=== PATIENT | female | born 1955 | race Caucasian/White ===

== ENCOUNTER 2016-07-14 16:14 | Inpatient (IN) | payer MEDICAID, OTHER ==
--- NOTE | 2016-07-14 17:29 | CPEKG ---
Heart Rate: 54 RR Interval: 1111 P-R Interval: 164 QRSD Interval: 94 QT Interval: 460 QTC Interval: 436 P Oldwick: 21 QRS Oldwick: -13 T Wave Oldwick: 42 EKG Severity - NORMAL ECG - EKG Impression: SINUS RHYTHM Electronically Signed By: Aaron Aranda 14-Jul-2016 23:14:56
[2016-07-14] MEDS ORDERED: ONDANSETRON 4 MG/2 ML VIAL ONE (17:44)
[2016-07-14] MEDS ORDERED: HYDROmorphONE/DILAUDID 1 MG/ML SYR ONE ×2 (17:44→20:05)
[2016-07-14] MEDS ORDERED: NS 1,000 ML IV ONE ×2 (17:45→17:53)
[2016-07-14] MEDS ORDERED: HYDROmorphONE/DILAUDID 1 MG/ML SYR IVP ONE ×3 (17:45→18:03)
[2016-07-14] MEDS ORDERED: ONDANSETRON 4 MG/2 ML VIAL IVP ONE ×3 (17:45→17:52)
[2016-07-14 17:55] LABS: % IMMATURE GRANULYOCYTES 0.2 % (0.0-1.1); ABSOLUTE IMMATURE GRANULOCYTES 0.02 10^3/uL (0.00-0.10); ADD DIFF? NO; ADD MORPH? NO; ADD SCAN? NO; ATYPICAL LYMPHOCYTE FLAG 0 (0-99); FRAGMENT RBC FLAG 0 (0-99); HEMOGLOBIN 16.3 g/dL (12.6-16.3); LEFT SHIFT FLG 10 (0-99); LIPEMIA HEMOLYSIS FLAG 90 (0-99); MEAN CELL HEMOGLOBIN 34.5 pg (27.9-34.1); MEAN CELL VOLUME 93.2 fL (81.5-99.8); PLATELET CLUMPS FLAG 0 (0-99); PLATELET COUNT 147 10^3/uL (150-400); RED BLOOD CELL COUNT 4.72 10^6/uL (4.18-5.33); RED CELL DISTRIBUTION WIDTH 12.7 % (11.5-15.2)
[2016-07-14 18:00] LABS: ALANINE AMINOTRANSFERASE 95 IU/L (9-52); ALBUMIN 4.9 g/dL (3.5-5.0); ALKALINE PHOSPHATASE 107 IU/L (38-126); ANION GAP 18 mEq/L (8-16); ASPARTATE AMINOTRANSFERASE 25 IU/L (14-46); BILIRUBIN,TOTAL 2.1 mg/dL (0.1-1.4); BILIRUBIN-CONJUGATED 0.8 mg/dL (0.0-0.5); BILIRUBIN-UNCONJUGATED 1.3 mg/dL (0.0-1.1); CARBON DIOXIDE 19 mEq/l (22-31); CHLORIDE 101 mEq/L (97-110); CREATININE 0.5 mg/dL (0.6-1.0); GLOMERULAR FILTRATION RATE > 60; GLUCOSE 155 mg/dL (70-100); POTASSIUM 3.5 mEq/L (3.5-5.2); SODIUM 138 mEq/L (134-144); TOTAL PROTEIN 8.4 g/dL (6.3-8.2)
[2016-07-14 18:05] LABS: INR 1.16 (0.83-1.16); PROTIME(PATIENT) 14.8 SEC (12.0-15.0)
[2016-07-14 18:06] LABS: APTT 28.3 SEC (23.0-38.0)
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
[2016-07-14 18:12] LABS: CREATINE KINASE-MB FRACTION 1.65 ng/mL (0-3.19); TROPONIN I < 0.012 ng/mL (0-0.034)
[2016-07-14] MEDS ORDERED: ACETAMINOPHEN 325 MG TAB PO PRN (21:39)
[2016-07-14] MEDS ORDERED: ONDANSETRON 4 MG/2 ML VIAL IVP PRN (21:39)
[2016-07-14] MEDS ORDERED: ONDANSETRON DISINTEGRATING 4 MG TAB PO PRN (21:39)
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
[2016-07-14] MEDS: HYDROmorphONE/DILAUDID 1 MG/ML SYR IVP PRN (22:54)
[2016-07-14] MEDS: D5W 1/2 NS W/ 20 KCl/L 1,000 ML IV SCH (22:54)
--- NOTE | 2016-07-15 00:41 | GCON ---
[f rep st] CONSULTATION DATE OF CONSULTATION: 07/14/2016 REFERRING PHYSICIAN: Aaron Aranda DO CHIEF COMPLAINT: Choledocholithiasis. HISTORY OF PRESENT ILLNESS: The patient is a 61-year-old woman with known cholelithiasis. She deve loped right upper quadrant pain radiating to her back during the past 24 hours. It was associated w ith nausea and vomiting. She has never had this discomfort before. Due to the pain, she presented to the emergency room. She had laboratory work done, which showed a total bilirubin of 2.1, with co njugated of 0.8. An ultrasound showed a common bile duct stone, and dilatation of the extrahepatic bile ducts, without any evidence of cholecystitis. PAST MEDICAL HISTORY: 1. Hypertension. 2. Chronic back pain. PAST SURGICAL HISTORY: D and C's. SOCIAL HISTORY: She drinks several times a week, but never in excess. She lives by herself. She d enies tobacco use. MEDICATIONS: Include losartan. ALLERGIES: Include Augmentin. FAMILY HISTORY: No family history of choledocholithiasis. REVIEW OF SYSTEMS: Ten-point review of systems negative, except per HPI. PHYSICAL EXAM: VITAL SIGNS: 36.7, 68, 133/99, 20, 97%. GENERAL: Pleasant, lying on her side, ove rweight, appears uncomfortable, but not toxic. HEENT: Normocephalic. No gross hearing deficits. Mucous membranes moist. Pupils equal and round. No scleral icterus. LUNGS: Clear to auscultation bilaterally. No increased work of breathing. CARDIAC: Regular rate. No peripheral edema. ABDOM EN: Bowel sounds are present. She is tender in the right upper quadrant to light touch. No obviou s hepatosplenomegaly. She is soft. MUSCULOSKELETAL: Normal nails. NEUROLOGIC: Grossly intact. SKIN: Warm and dry. Results reviewed per HPI. IMPRESSION AND PLAN: The patient is a 61-year-old with choledocholithiasis. I recommended GI be co nsulted, and with hopeful stone extraction. I recommended that her gallbladder be taken out within a week of the ERCP. I stated that most people do it within the same hospitalization. 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 We discussed the risk of another stone passing. She is amenable to being admitted with ERCP, and I will follow up tomorrow, and we will discuss timing of laparoscopic cholecystectom y later. /[id number]/MODL
[2016-07-15] MEDS: HYDROmorphONE/DILAUDID 1 MG/ML SYR IVP PRN ×6 (03:07→23:01)
[2016-07-15 05:42] LABS: % IMMATURE GRANULYOCYTES 0.2 % (0.0-1.1); ABSOLUTE IMMATURE GRANULOCYTES 0.02 10^3/uL (0.00-0.10); ADD DIFF? NO; ADD MORPH? NO; ADD SCAN? NO; ATYPICAL LYMPHOCYTE FLAG 0 (0-99); FRAGMENT RBC FLAG 0 (0-99); HEMATOCRIT 40.7 % (38.0-47.0); HEMOGLOBIN 14.8 g/dL (12.6-16.3); LEFT SHIFT FLG 0 (0-99); LIPEMIA HEMOLYSIS FLAG 90 (0-99); MEAN CELL HEMOGLOBIN 34.3 pg (27.9-34.1); MEAN CELL HEMOGLOBIN CONCENTR. 36.4 g/dL (32.4-36.7); MEAN CELL VOLUME 94.4 fL (81.5-99.8); MEAN PLATELET VOLUME 10.5 fL (8.7-11.7); PLATELET CLUMPS FLAG 10 (0-99); PLATELET COUNT 137 10^3/uL (150-400); RED BLOOD CELL COUNT 4.31 10^6/uL (4.18-5.33); RED CELL DISTRIBUTION WIDTH 12.9 % (11.5-15.2)
[2016-07-15 06:04] LABS: ALANINE AMINOTRANSFERASE 77 IU/L (9-52); ALKALINE PHOSPHATASE 80 IU/L (38-126); ANION GAP 9 mEq/L (8-16); ASPARTATE AMINOTRANSFERASE 15 IU/L (14-46); BILIRUBIN,TOTAL 1.7 mg/dL (0.1-1.4); BILIRUBIN-CONJUGATED 0.6 mg/dL (0.0-0.5); BILIRUBIN-UNCONJUGATED 1.1 mg/dL (0.0-1.1); CALCIUM 8.5 mg/dL (8.5-10.4); CARBON DIOXIDE 22 mEq/l (22-31); CHLORIDE 104 mEq/L (97-110); CREATININE 0.5 mg/dL (0.6-1.0); GLOMERULAR FILTRATION RATE > 60; GLUCOSE 173 mg/dL (70-100); POTASSIUM 3.7 mEq/L (3.5-5.2); SODIUM 135 mEq/L (134-144)
--- NOTE | 2016-07-15 06:45 | SOAPPROG ---
YASMEEN Progress Note Assessment/Plan: Assessment:Chart reviewed. I agree with ERCP, will schedule for 1200 today. Plan: 07/15/16 06:44 Objective: Vital Signs Temp Pulse Resp BP Pulse Ox 37 C 75 16 157/79 H 90 L 07/15/16 05:12 07/15/16 05:12 07/15/16 05:12 07/15/16 05:12 07/15/16 05:12 Laboratory Results 07/15/16 05:25 07/15/16 05:25 07/14/16 07/15/16 07/16/16 05:59 05:59 05:59 Intake Total 1000 Balance 1000 PT 14.8 SEC (12.0-15.0) 07/14/16 17:35 INR 1.16 (0.83-1.16) 07/14/16 17:35 ICD10 Worksheet Patient Problems: Problems Problem Status Onset Choledocholithiasis Acute Upper abdominal pain Acute Sternal fracture Acute
[2016-07-15] MEDS: LOSARTAN POTASSIUM 50 MG TAB PO SCH (08:03)
[2016-07-15] MEDS: D5W 1/2 NS W/ 20 KCl/L 1,000 ML IV SCH ×2 (08:09→23:01)
--- NOTE | 2016-07-15 08:51 | SOAPPROG ---
SOAP Progress Note Assessment/Plan: Assessment: 61 year old admitted for choledocolithiasis Dr. 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 No nausea O: lying in bed, appears uncomfortable Plan: 07/15/16 08:47 Objective: Vital Signs Temp Pulse Resp BP Pulse Ox 37.3 C 81 14 148/82 H 94 07/15/16 08:10 07/15/16 08:10 07/15/16 08:10 07/15/16 08:10 07/15/16 08:10 Laboratory Results 07/15/16 05:25 07/15/16 05:25 07/14/16 07/15/16 07/16/16 05:59 05:59 05:59 Intake Total 1000 Balance 1000 PT 14.8 SEC (12.0-15.0) 07/14/16 17:35 INR 1.16 (0.83-1.16) 07/14/16 17:35 Physical Exam - Physical Exam General Appearance: WD/WN, alert, mild distress EENT: PERRL/EOMI, normal ENT inspection, No scleral icterus (R), No scleral icterus (L), No hearing deficit Respiratory: chest non-tender, lungs clear, normal breath sounds Cardiac/Chest: regular rate, rhythm Abdomen: normal bowel sounds, soft, other (?palpable gallbladder in right upper quadrant. Very tender even to light palpation) Skin: normal color, warm/dry Extremities: normal range of motion Neuro/Psych: no motor/sensory deficits, normal mood/affect ICD10 Worksheet Patient Problems: Problems Problem Status Onset Choledocholithiasis Acute Upper abdominal pain Acute Sternal fracture Acute
--- NOTE | 2016-07-15 09:05 | HOSPPROG ---
Hospitalist Progress Note Assessment/Plan: #Choledocholithiasis: ERCP today by. Dr. Turner. Appreciate Dr. Stanford's consult as well #Acute abd pain: due to above. PRN IV Dilaudid #Biliary obstruction: ERCP today #Accelerated HTN: pain contributing. Cont Losartan #Diet: NPO #DVT ppx: SCDs #Disp: warrants inpatient admission with uncontrolled pain requiring ERCP and IV pain control Subjective: crampy abd pain. No emesis today Objective: Vital Signs Temp Pulse Resp BP Pulse Ox 37.3 C 81 14 148/82 H 94 07/15/16 08:10 07/15/16 08:10 07/15/16 08:10 07/15/16 08:10 07/15/16 08:10 Laboratory Results 07/15/16 05:25 07/15/16 05:25 07/14/16 07/15/16 07/16/16 05:59 05:59 05:59 Intake Total 1000 Balance 1000 PT 14.8 SEC (12.0-15.0) 07/14/16 17:35 INR 1.16 (0.83-1.16) 07/14/16 17:35 - Physical Exam Constitutional: no apparent distress (tired), uncomfortable, other Eyes: PERRL Ears, Nose, Mouth, Throat: moist mucous membranes, hearing normal Cardiovascular: regular rate and rhythym, no murmur, rub, or gallop Respiratory: no respiratory distress, no rales or rhonchi Gastrointestinal: other (quiet BS. RUQ/epigastric TTP) Genitourinary: no bladder fullness Skin: warm Musculoskeletal: full muscle strength Neurologic: AAOx3, CN II-XII Intact ICD10 Worksheet Patient Problems: Problems Problem Status Onset Choledocholithiasis Acute Upper abdominal pain Acute Sternal fracture Acute
[2016-07-15] MEDS ORDERED: IOTHALAMATE MEG (CONRAY) 50 ML VIAL IV ONE (11:29)
[2016-07-15] MEDS ORDERED: GLUCAGON,HUMAN RECOMBINANT 1 MG VIAL ONE (11:29)
[2016-07-15] MEDS ORDERED: fentaNYL 100 MCG/2 ML INJ ONE ×2 (12:02)
[2016-07-15] MEDS ORDERED: PROPOFOL 200 MG/20 ML VIAL ONE ×2 (12:02)
[2016-07-15] MEDS ORDERED: ONDANSETRON 4 MG/2 ML VIAL ONE (12:05)
[2016-07-15] MEDS ORDERED: LIDOCAINE 2% 5 ML SDV ONE (12:05)
[2016-07-15] MEDS ORDERED: ROCURONIUM 50 MG/5 ML VIAL ONE (12:05)
[2016-07-15] MEDS ORDERED: SUGAMMADEX SODIUM 200 MG/2 ML VIAL IVP ONE (12:05)
[2016-07-15] MEDS ORDERED: RANITIDINE 50 MG/2 ML VIAL ONE (12:05)
[2016-07-15] MEDS ORDERED: METOCLOPRAMIDE 10 MG/2 ML VIAL ONE (12:05)
[2016-07-15] MEDS ORDERED: INDOMETHACIN 50 MG SUPP PR ONE (12:32)
--- NOTE | 2016-07-15 13:10 | SOAPPROG ---
YASMEEN Progress Note Assessment/Plan: Assessment:Chart reviewed. I agree with ERCP, will schedule for 1200 today. Plan: 07/15/16 06:44 07/15/16 13:09 ERCP with sphincterotomy performed, CBD clear of debris at end of procedure. No PD injections performed. Surgery as per Dr. Stanford. Objective: Vital Signs Temp Pulse Resp BP Pulse Ox 37.3 C 81 14 148/82 H 94 07/15/16 08:10 07/15/16 08:10 07/15/16 08:10 07/15/16 08:10 07/15/16 08:10 Laboratory Results 07/15/16 05:25 07/15/16 05:25 07/14/16 07/15/16 07/16/16 05:59 05:59 05:59 Intake Total 1000 Balance 1000 PT 14.8 SEC (12.0-15.0) 07/14/16 17:35 INR 1.16 (0.83-1.16) 07/14/16 17:35 ICD10 Worksheet Patient Problems: Problems Problem Status Onset Choledocholithiasis Acute Upper abdominal pain Acute Sternal fracture Acute
--- NOTE | 2016-07-15 14:03 | GPN ---
[f rep st] PROCEDURE NOTE PROCEDURE: Endoscopic retrograde cholangiopancreatography with sphincterotomy and common bile duct clearance. INDICATIONS: The patient is a 61-year-old female who was admitted yesterday with abdominal pain. U ltrasound was performed that showed a dilated common bile duct and common bile duct filling defect c onsistent with stone. She also has cholelithiasis. ERCP is being requested to clear the common yamilex e duct prior to cholecystectomy. PROCEDURE: After the proper consent was obtained, patient was placed in swimmer's position and intu bated. Video duodenoscope was introduced through the mouth, down the esophagus, into stomach, and past the pylorus to duodenum. These structures appear grossly normal. The ampulla of Vater was identified within a duodenal diverticulum with a characteristic pantaloon p resentation that was atraumatic. The common bile duct was cannulated and opacified, and a filling defect was noted in a mildly dilate d common duct. Pancreatic duct was not injected. Sphincterotomy was performed to approximately 9 mm, and then a 9-12 mm balloon was exchanged over a guidewire. Multiple sweeps were performed, at the end of which no filling defect was noted. At this point, instruments were removed. Patient tolerated procedure well and was returned to [facility] in stable condition. RECOMMENDATIONS: Patient's further treatment will be as per Dr. Stanford. If there are signs or symptoms of any recurrent common duct obstruction, this procedure can be repea renny. /[id number]/MODL
[2016-07-16] MEDS: HYDROmorphONE/DILAUDID 1 MG/ML SYR IVP PRN ×2 (03:51→08:49)
[2016-07-16 05:44] LABS: HEMATOCRIT 37.4 % (38.0-47.0); HEMOGLOBIN 13.4 g/dL (12.6-16.3); MEAN CELL HEMOGLOBIN 34.7 pg (27.9-34.1); MEAN CELL HEMOGLOBIN CONCENTR. 35.8 g/dL (32.4-36.7); MEAN CELL VOLUME 96.9 fL (81.5-99.8); RED BLOOD CELL COUNT 3.86 10^6/uL (4.18-5.33); RED CELL DISTRIBUTION WIDTH 13.2 % (11.5-15.2)
[2016-07-16 06:29] LABS: ALANINE AMINOTRANSFERASE 53 IU/L (9-52); ALBUMIN 3.2 g/dL (3.5-5.0); ALKALINE PHOSPHATASE 66 IU/L (38-126); ANION GAP 7 mEq/L (8-16); ASPARTATE AMINOTRANSFERASE 12 IU/L (14-46); BILIRUBIN,TOTAL 2.7 mg/dL (0.1-1.4); BILIRUBIN-UNCONJUGATED 1.7 mg/dL (0.0-1.1); CALCIUM 7.9 mg/dL (8.5-10.4); CARBON DIOXIDE 25 mEq/l (22-31); CHLORIDE 104 mEq/L (97-110); CREATININE 0.5 mg/dL (0.6-1.0); GLOMERULAR FILTRATION RATE > 60; GLUCOSE 130 mg/dL (70-100); POTASSIUM 3.9 mEq/L (3.5-5.2); SODIUM 136 mEq/L (134-144); TOTAL PROTEIN 5.9 g/dL (6.3-8.2)
[2016-07-16] MEDS: D5W 1/2 NS W/ 20 KCl/L 1,000 ML IV SCH (08:49)
[2016-07-16] MEDS: LOSARTAN POTASSIUM 50 MG TAB PO SCH (09:19)
--- NOTE | 2016-07-16 11:29 | HOSPPROG ---
Hospitalist Progress Note Assessment/Plan: #Choledocholithiasis: ERCP 07/15 with sphincterotomy. Plan for lap choley today #Acute abd pain: due to above. PRN IV Dilaudid #Biliary obstruction: ERCP done. #Accelerated HTN: pain contributing. Cont Losartan #Diet: NPO #DVT ppx: SCDs #Disp: warrants inpatient admission with uncontrolled pain requiring ERCP and IV pain control Subjective: still c/o diffuse abd pain Objective: Vital Signs Temp Pulse Resp BP Pulse Ox 37.4 C 72 18 128/71 H 94 07/16/16 07:55 07/16/16 07:55 07/16/16 07:55 07/16/16 07:55 07/16/16 07:55 Laboratory Results 07/16/16 05:29 07/16/16 05:29 07/15/16 07/16/16 07/17/16 05:59 05:59 05:59 Intake Total 1936 Balance 193 PT 14.8 SEC (12.0-15.0) 07/14/16 17:35 INR 1.16 (0.83-1.16) 07/14/16 17:35 - Physical Exam Constitutional: no apparent distress Eyes: PERRL Ears, Nose, Mouth, Throat: moist mucous membranes, hearing normal Cardiovascular: regular rate and rhythym, no murmur, rub, or gallop Respiratory: no respiratory distress, no rales or rhonchi Gastrointestinal: tenderness (epigastic region. No rebound/guarding), distension , other (quiet BS) Skin: warm Musculoskeletal: full muscle strength Neurologic: AAOx3, CN II-XII Intact Psychiatric: interacting appropriately ICD10 Worksheet Patient Problems: Problems Problem Status Onset Choledocholithiasis Acute Upper abdominal pain Acute Sternal fracture Acute
[2016-07-16] MEDS ORDERED: ONDANSETRON 4 MG/2 ML VIAL ONE (11:58)
[2016-07-16] MEDS ORDERED: SUGAMMADEX SODIUM 200 MG/2 ML VIAL IVP ONE (11:58)
[2016-07-16] MEDS ORDERED: LIDOCAINE 2% 5 ML SDV ONE (11:58)
[2016-07-16] MEDS ORDERED: ROCURONIUM 50 MG/5 ML VIAL ONE ×2 (11:58→12:02)
[2016-07-16] MEDS ORDERED: DEXAMETHASONE 4 MG/ML VIAL ONE (11:58)
[2016-07-16] MEDS ORDERED: PROPOFOL 200 MG/20 ML VIAL ONE (11:58)
[2016-07-16] MEDS ORDERED: fentaNYL 100 MCG/2 ML INJ ONE ×4 (12:01→15:21)
[2016-07-16] MEDS ORDERED: BUPIVACAINE 0.5% 30 ML SDV ONE (12:03)
[2016-07-16] MEDS ORDERED: MIDAZOLAM 2 MG/2 ML VIAL ONE (12:41)
[2016-07-16] MEDS ORDERED: CLINDAMYCIN 600 MG/DEXTROSE 50 ML IV ONE (12:42)
--- NOTE | 2016-07-16 13:07 | SOAPPROG ---
SOAP Progress Note Assessment/Plan: Assessment: 61 year old admitted for choledocolithiasis Dr. Turner performed ERCP Pt much improved this am Ready to proceed with lap mary. RIsks and benefits discussed S: Less pain than on admission. No nausea O: lying in bed, abdomen is softer Plan: 07/15/16 08:47 07/16/16 13:06 Objective: Vital Signs Temp Pulse Resp BP Pulse Ox 37.4 C 72 18 128/71 H 94 07/16/16 07:55 07/16/16 07:55 07/16/16 07:55 07/16/16 07:55 07/16/16 07:55 Laboratory Results 07/16/16 05:29 07/16/16 05:29 07/15/16 07/16/16 07/17/16 05:59 05:59 05:59 Intake Total 1936 Balance 1937 PT 14.8 SEC (12.0-15.0) 07/14/16 17:35 INR 1.16 (0.83-1.16) 07/14/16 17:35 ICD10 Worksheet Patient Problems: Problems Problem Status Onset Choledocholithiasis Acute Upper abdominal pain Acute Sternal fracture Acute
[2016-07-16] MEDS ORDERED: hydrALAZINE 20 MG/ML VIAL ONE (14:10)
--- NOTE | 2016-07-16 15:22 | POSTOPPROG ---
Post Op Note Date of Operation: 07/16/16 Surgeon: Gwen Stanford Anesthesiologist: vince Anesthesia: GET(General Endotracheal) Pre-op Diagnosis: umbilical hernia choledocolithiasis Post-op Diagnosis: same and cirrhosis Indication: 61 yo with choledocolithiasis Procedure: lap mary, lap liver bx, umbilical hernia repair Findings: inflammed gallbladder with pus, cirrhosis Inf/Abcess present in the surg proc area at time of surgery?: Yes Depth: Organ Space EBL: 100-500 Drains: Tomas Martin Specimen(s): culture, gb, liver
[2016-07-16] MEDS ORDERED: HYDROmorphONE/DILAUDID 1 MG/ML SYR ONE (15:33)
[2016-07-16] MEDS ORDERED: HYDROmorphONE/DILAUDID 2 MG/ML INJ ONE (15:59)
[2016-07-16] MEDS ORDERED: LR 1,000 ML IV ONE (17:30)
[2016-07-16] MEDS: VANCOMYCIN 1.25 GM in D5W 250 ML IV SCH (20:06)
[2016-07-16] MEDS: HYDROCODONE/APAP 5/325 TAB PO PRN (20:28)
--- NOTE | 2016-07-16 22:33 | SOAPPROG ---
SOAP Progress Note Assessment/Plan: Assessment: Patient is POD#0 s/p lap mary - VSS, HR down to 80s. Pressures stable - JADON non-bilious - patient resting comfortably Plan: 07/16/16 22:32 Objective: Vital Signs Temp Pulse Resp BP Pulse Ox 37 C 98 16 118/84 H 93 07/16/16 20:30 07/16/16 20:30 07/16/16 20:30 07/16/16 20:30 07/16/16 20:30 Microbiology 07/16/16 13:49 Gram Stain - Final Gallbladder - Aspirate Laboratory Results 07/16/16 05:29 07/16/16 05:29 07/15/16 07/16/16 07/17/16 05:59 05:59 05:59 Intake Total 1937 1800 Output Total 250 Balance 1937 1550 PT 14.8 SEC (12.0-15.0) 07/14/16 17:35 INR 1.16 (0.83-1.16) 07/14/16 17:35 ICD10 Worksheet Patient Problems: Problems Problem Status Onset Choledocholithiasis Acute Upper abdominal pain Acute Sternal fracture Acute
[2016-07-17] MEDS: HYDROCODONE/APAP 5/325 TAB PO PRN ×3 (01:34→12:17)
[2016-07-17] MEDS: D5W 1/2 NS W/ 20 KCl/L 1,000 ML IV SCH (05:07)
[2016-07-17 06:05] LABS: ALANINE AMINOTRANSFERASE 77 IU/L (9-52); ALBUMIN 2.8 g/dL (3.5-5.0); ALKALINE PHOSPHATASE 58 IU/L (38-126); ANION GAP 8 mEq/L (8-16); ASPARTATE AMINOTRANSFERASE 32 IU/L (14-46); CALCIUM 7.5 mg/dL (8.5-10.4); CARBON DIOXIDE 23 mEq/l (22-31); CHLORIDE 104 mEq/L (97-110); CREATININE 0.5 mg/dL (0.6-1.0); GLOMERULAR FILTRATION RATE > 60; GLUCOSE 129 mg/dL (70-100); POTASSIUM 4.1 mEq/L (3.5-5.2); SODIUM 135 mEq/L (134-144); TOTAL PROTEIN 5.4 g/dL (6.3-8.2)
[2016-07-17 06:17] LABS: % IMMATURE GRANULYOCYTES 0.4 % (0.0-1.1); ABSOLUTE IMMATURE GRANULOCYTES 0.03 10^3/uL (0.00-0.10); ADD DIFF? NO; ADD MORPH? NO; ADD SCAN? NO; ATYPICAL LYMPHOCYTE FLAG 0 (0-99); FRAGMENT RBC FLAG 0 (0-99); HEMATOCRIT 33.6 % (38.0-47.0); HEMOGLOBIN 11.9 g/dL (12.6-16.3); LEFT SHIFT FLG 20 (0-99); LIPEMIA HEMOLYSIS FLAG 90 (0-99); MEAN CELL HEMOGLOBIN 34.4 pg (27.9-34.1); MEAN CELL HEMOGLOBIN CONCENTR. 35.4 g/dL (32.4-36.7); MEAN CELL VOLUME 97.1 fL (81.5-99.8); MEAN PLATELET VOLUME 11.4 fL (8.7-11.7); PLATELET CLUMPS FLAG 0 (0-99); PLATELET COUNT 103 10^3/uL (150-400); RED BLOOD CELL COUNT 3.46 10^6/uL (4.18-5.33); RED CELL DISTRIBUTION WIDTH 13.3 % (11.5-15.2)
[2016-07-17] MEDS: VANCOMYCIN 1.25 GM in D5W 250 ML IV SCH (08:24)
[2016-07-17 08:27] VITALS: BP 132/59; RESP 18; TEMP 98.2
[2016-07-17] MEDS: LOSARTAN POTASSIUM 50 MG TAB PO SCH (08:27)
[2016-07-17 08:40] VITALS: PULSE 73; O2SAT 95
--- NOTE | 2016-07-17 08:50 | SOAPPROG ---
SOAP Progress Note Assessment/Plan: Assessment: 61 year old admitted for choledocolithiasis Dr. Turner performed ERCP s/p lap mary - cirrhotic liver - lap liver biopsy obtained Gallbladder very inflamed with purulent contents I recommended that patient stay another night but she would like to discharge home Will need to discharge home on O2 - atelectasis and hypoxia - room air desat to 74 Home on Levaquin and Flagyl X 1 week Home with JADON drain. F/U on Tuesday 4:`5 Patient will call if bilious contents S: Minimal nausea. Hungry. Difficulty getting up and down but able to move independently O: lying in bed, able to move from supine to sitting to standing and back Lungs decreased at bases Regular rate Bowel sounds present Incisions cdi JADON with serosanguinous fluid Plan: 07/15/16 08:47 07/16/16 13:06 07/17/16 08:45 07/17/16 08:53 Objective: Vital Signs Temp Pulse Resp BP Pulse Ox 36.8 C 73 18 132/59 H 95 07/17/16 08:26 07/17/16 08:39 07/17/16 08:26 07/17/16 08:26 07/17/16 08:39 Microbiology 07/16/16 13:49 Gram Stain - Final Gallbladder - Aspirate Laboratory Results 07/17/16 05:34 07/17/16 05:34 07/16/16 07/17/16 07/18/16 05:59 05:59 05:59 Intake Total 1936 2300 Output Total 330 10 Balance 1936 PT 14.8 SEC (12.0-15.0) 07/14/16 17:35 INR 1.16 (0.83-1.16) 07/14/16 17:35 ICD10 Worksheet Patient Problems: Problems Problem Status Onset Choledocholithiasis Acute Upper abdominal pain Acute Sternal fracture Acute
[2016-07-17 09:22] LABS: BILIRUBIN-CONJUGATED 1.1 mg/dL (0.0-0.5); BILIRUBIN-UNCONJUGATED 0.9 mg/dL (0.0-1.1)
--- NOTE | 2016-07-17 13:14 | GDS ---
[f rep st] DISCHARGE SUMMARY DISCHARGE DIAGNOSES: 1. Choledocholithiasis. 2. Cirrhotic liver. 3. Acute abdominal pain. 4. Accelerated hypertension. CONSULTATIONS: 1. Surgery. 2. Gastroenterology. PROCEDURES: 1. ERCP 07/15/2016: Sphincterotomy performed. 2. 07/16/2016, laparoscopic cholecystectomy with liver biopsy and umbilical hernia repair by Dr. Stanford. HISTORY OF PRESENT ILLNESS: The patient is a 61-year-old female with a history of hypertension, obesity, prior gallstones, presented with 1 day of right upper quadrant pain radiating to her back, associated with nausea and vomiting. She had mild chills but no fevers or sweats. ASSESSMENT AND PLAN: 1. Choledocholithiasis: There was no evidence of cholecystitis. She underwent ERCP on 07/[address] Turner with sphincterotomy. Then underwent a laparoscopic cholecystectomy that demonstrated inflamed gallbladder with pus.Continue Levaquin and Flagyl for 1 week. Discharged home with a JADON drain. Dr. Stanford did recommend patient stay but patient refused. 2. Cirrhosis: This was evident during surgery. Liver biopsy is pending, await those results. 3. Acute hypoxic respiratory failure: Likely secondary to atelectasis. There is no evidence of pneumonia. Patient will be discharged with oxygen. 4. Acute abdominal pain due to problem #1. P.r.n. opioids at discharge. 5. Obesity: Counseled on diet and exercise. 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 She is to follow up with Dr. Stanford. MEDICATIONS: New medications: See medication reconciliation. FOLLOWUP: Dr. Stanford. She will call if any bilious drainage out of her JADON. /[id number]/MODL MTDD
--- NOTE | 2016-07-18 04:00 | GOP ---
[f rep st] OPERATIVE REPORT DATE OF OPERATION: 07/16/2016 SURGEON: Gwen Stanford MD ANESTHESIA: General. ANESTHESIOLOGIST: Alhaji Enriquez MD. PREOPERATIVE DIAGNOSIS: Choledocholithiasis. POSTOPERATIVE DIAGNOSIS: Umbilical hernia, choledocholithiasis with acute on chronic cholecystitis, cirrhosis. PROCEDURE PERFORMED: Laparoscopic cholecystectomy, laparoscopic liver biopsy, umbilical hernia repair. FINDINGS: Inflamed thickened gallbladder with pus and cirrhotic liver. SPECIMENS: Gallbladder and gallbladder aspirate. ESTIMATED BLOOD LOSS: 250 cc. INDICATIONS: The patient is a 61-year-old woman who presented to the emergency room with right upper quadrant pain. She was diagnosed with choledocholithiasis. She underwent an ERCP. She was still having pain and cholecystectomy was indicated. DESCRIPTION OF PROCEDURE: She was brought into the operating room, placed supine on the table, and general anesthesia was administered. Her abdomen was prepped and draped in the usual sterile fashion. She had an umbilical hernia. I made an incision above the umbilicus and carried this into the umbilicus. I came around the umbilical stalk. She had incarcerated omentum which I excised. Within this I could see a very large vein which was ligated. Once the defect was cleared above and below the fascia, I inserted a Veress needle and insufflated her abdomen to a pressure of 15 mmHg. I then inserted a 10 mm trocar with a camera at this site. There were no injuries from Veress needle placement. Under direct vision I placed a 5 mm subxiphoid trocar and two 5 mm trocars along the right costal margin. I explored her abdomen. Her gallbladder was extremely thick and tense. I used a needle to aspirate over 120 cc of fluid from the gallbladder. The gallbladder was still very full, but I was able to retract it cephalad. This was somewhat limited due to her cirrhotic liver. I grasped her gallbladder laterally to expose the triangle of Calot. It was very thickened in this area. I used a combination of blunt dissection and suction dissection to identify the cystic duct. The cystic duct was enlarged. It was directly entering the gallbladder, came around it circumferentially. I could see the cystic artery behind it. I tried to get clips across the cystic duct, but they were barely coming across it. I used a clip on each side and transected it with scissors. I then used an 0 PDS endo- loop to secure the cystic duct. I continued my dissection and could see the common hepatic artery with the branches of the left and right hepatic artery which was lower and more left lateral than is typically. I skelotonized the cystic artery. I clipped it proximally and distally and transected it. The gallbladder was removed from the liver bed with electrocautery. During the operation at one point there was a small tear in the fundus of the gallbladder and purulent exudate was expressed. I performed suction and this was placed in a Lukens trap and sent to Microbiology. The plane between the cirrhotic liver and the gallbladder was very difficult to discern due to the inflammation. In addition, the coloration of the gallbladder was the same as the liver bed. The gallbladder was completely removed. It was placed in an EndoCatch bag and removed via the 10 mm trocar. This had to be enlarged considerably to accommodate the large thickened gallbladder. The trocar was put back in place and a towel clip placed. Hemostasis was achieved on the liver bed. I performed irrigation and suctioned it clean the area where both bile and purulent fluid were expressed. I placed a 15 round silicone drain which exited the most right lateral port. This was placed in the liver bed. It was sutured in place with 3-0 nylon. The fascia at the umbilical site was closed with 0 PDS. Neoumbilicus was created and the skin was closed with 4-0 Monocryl. As she was emerging from anesthesia, she coughed and there came a lot of blood from her subxiphoid incision. I opened this further and found a very small re cannulized vessel in this area. I used electrocautery to ligate it. I then sutured this wound closed with 4-0 Monocryl. Dermabond was applied to the incisions. A cotton ball and Tegaderm applied to the umbilical incision. She was transferred to the PACU in stable condition. DRAINS: Ramandeep. /[id number]/MODL MTDD
== END 2016-07-17 12:54 | disposition home or self-care (01) | DRG 417 ==
LOC: F3E 21:30 → OBSVTOIN 21:39
PROVIDERS: ADMIT Internal Medicine; ATTEND Internal Medicine
DX: K80.47 Calculus of bile duct with acute and chronic cholecystitis with obstruction (principal); K74.60 Unspecified cirrhosis of liver; K42.0 Umbilical hernia with obstruction, without gangrene; J96.01 Acute respiratory failure with hypoxia; E66.09 Other obesity due to excess calories; Z68.27 Body mass index [BMI] 27.0-27.9, adult; I10 Essential (primary) hypertension; J44.9 Chronic obstructive pulmonary disease, unspecified; F17.210 Nicotine dependence, cigarettes, uncomplicated
CPT/HCPCS: 96374; J0360; J1100; J1170; J1610; J1956; J2250; J2405; J2704; J2765; J2780; J3010; J3370; Q9961

== ENCOUNTER → 2017-03-25 | Outpatient (CLI) | payer MEDICAID | LOC: FIMAGING 14:42 | PROVIDERS: ATTEND Physician Assistant | DX: Z12.31 Encounter for screening mammogram for malignant neoplasm of breast (principal) ==

== ENCOUNTER 2017-07-12 16:12 | Emergency (ER) | payer MEDICAID ==
--- NOTE | 2017-07-12 16:20 | EDPHY ---
H & P Time Seen by Provider: 07/12/17 16:19 HPI/ROS: CHIEF COMPLAINT: [ ] HISTORY OF PRESENT ILLNESS: [Need 4: Location, Duration, Severity, Quality, Context, Timing Modifying Factors, Associated S&S] REVIEW OF SYSTEMS: A comprehensive 10 point review of systems is otherwise negative aside from elements mentioned in the history of present illness. Source: Patient Exam Limitations: No limitations - Medical/Surgical History Hx Asthma: No Hx Chronic Respiratory Disease: No Hx Diabetes: No Hx Cardiac Disease: No Hx Renal Disease: No Hx Cirrhosis: No Hx Alcoholism: No Hx HIV/AIDS: No Hx Splenectomy or Spleen Trauma: No Other PMH: htn/chronic back pain from a hospital 1 year ago - Social History Smoking Status: Former smoker - Physical Exam Exam: General Appearance: [Alert, no distress] Eyes: [Pupils equal and round no pallor or injection] ENT, Mouth: [Mucous membranes moist] Respiratory: [There are no retractions, lungs are clear to auscultation] Cardiovascular: [Regular rate and rhythm] Gastrointestinal: [Abdomen is soft and nontender, no masses, bowel sounds normal] Neurological: [A&O, normal motor function, normal sensory exam, normal cranial nerves] Skin: [Warm and dry, no rashes] Musculoskeletal: [Neck is supple nontender] Extremities: [symmetrical, full range of motion] Psychiatric: [Patient is oriented X 3, there is no agitation] Allergies/Adverse Reactions: augmetin Allergy (Uncoded 07/14/16 17:16) unknown ABX Allergy (Uncoded 07/14/16 17:16) Home Medications: Medication Instructions Recorded Herbals/Supplements -Info Only 1 ea PO DAILY 07/14/16 Losartan Potassium [Cozaar] 100 mg PO DAILY 07/14/16 Hydrocodone/APAP 5/325 [[place] 1 - 2 tab PO Q4HRS PRN #20 tab 07/17/16 5/325 (*)] Ondansetron HCl [Zofran] 4 mg PO Q6H PRN #30 tablet 07/17/16 levOFLOXACIN [levAQUIN (*)] 750 mg PO DAILY #7 tab 07/17/16 metroNIDAZOLE [Flagyl 500 mg (*)] 500 mg PO TID #21 tab 07/17/16 Departure - Departure Referrals: Patient,NotPresent [Primary Care Provider] - As per Instructions
--- NOTE | 2017-07-12 16:26 | CPEKG ---
Heart Rate: 88 RR Interval: 682 P-R Interval: 188 QRSD Interval: 88 QT Interval: 388 QTC Interval: 470 P [place]: 71 QRS [place]: -4 T Wave [place]: 48 EKG Severity - NORMAL ECG - EKG Impression: SINUS RHYTHM Electronically Signed By: Alton Braswell 14-Jul-2017 09:54:38
[2017-07-12] MEDS ORDERED: NS 500 ML IV ONE (16:38)
--- NOTE | 2017-07-12 16:42 | EDPHY ---
H & P Time Seen by Provider: 07/12/17 16:19 HPI/ROS: CHIEF COMPLAINT: Shaky, carpal spasm, shortness of breath HISTORY OF PRESENT ILLNESS: Patient is a 62-year-old female who presents to the emergency department via EMS with multiple complaints. Patient states she was driving home feeling normal. She subsequently had a strain sensation. She became jittery. She began breathing fast. She had bilateral carpal spasm. She describes bilateral hand and forearm pain. She had mild shortness of breath. No cough or fever. No chest pain. Her symptoms now have mostly resolved. She has some mild discomfort in her bilateral forearms. She denies fevers or chills. She has no leg pain or swelling. No headache. No neck stiffness. No focal deficits. REVIEW OF SYSTEMS: My complete review of systems is negative except as mentioned in the HPI. Smoking Status: Former smoker Physical Exam: Vitals noted GENERAL: Well-appearing, in no acute distress, alert. HEENT: Eyes normal to inspection, normal pharynx, no signs of dehydration. NECK: No thyromegaly, no lymphadenopathy, supple. RESPIRATORY: Clear to auscultation bilaterally, no rales, rhonchi or wheezing. CVS: Regular rate and rhythm, no rubs, murmurs, or gallops. ABDOMEN: Soft, nontender, nondistended, no organomegaly. BACK: Normal to inspection, no CVA tenderness. SKIN: Normal color, no rash, warm, dry. No pallor. EXTREMITIES: No pedal edema, no calf tenderness, no Homans sign or cords, no joint swelling. NEURO/PSYCH: Higher functions: Alert and Oriented x3. Normal speech and cognition. Normal mood and affect. Cranial nerves: Normal as tested. Cerebellar: Normal as tested. Good finger to nose, good [id number], normal gait. Peripheral exam: Normal motor exam. Normal sensation. Normal reflexes. Constitutional: Initial Vital Signs Heart Rate 79 07/12/17 17:08 Respiratory Rate 16 07/12/17 17:08 Blood Pressure 153/94 H 07/12/17 17:08 O2 Sat (%) 97 07/12/17 17:08 O2 Delivery Mode Room Air Allergies/Adverse Reactions: augmetin Allergy (Uncoded 07/14/16 17:16) unknown ABX Allergy (Uncoded 07/14/16 17:16) Home Medications: Medication Instructions Recorded Nancy 07/12/17 Medical Decision Making - Diagnostics Imaging Results: Imaging Impressions Chest X-Ray 07/12/17 16:38 Impression: Normal chest. ED Course/Re-evaluation: I met EMS on arrival. Took report from the ichthyology teacher. In the emergency department I discussed possible etiologies with the patient. I answered all her questions. Patient was given normal saline IV for hydration. I rechecked the patient. She was feeling much better. The patient relates that she has been very stressed out at work. She told her job she was quitting today prior to driving home. EKG shows normal sinus rhythm, normal rate, normal axis, normal intervals. There are no ST or T-wave abnormalities. EKG is normal as interpreted by me. Troponin is negative. Patient's chemistry panel is notable for low CO2 at 15. Patient's urine showed 25-50 red cells. There were 5-10 white cells. Negative leuk esterase, negative nitrite, negative bacteria. This was clean catch. I again rechecked the patient. She had no complaints. Repeat EKG, troponin and chemistry panel was ordered. Repeat troponin is 0.020. This is negative. The chemistry is negative. EKG shows normal sinus rhythm, normal rate, normal axis, normal intervals. There are no ST or T-wave abnormalities. EKG is normal as interpreted by me. Discussed the results with the patient. She is asymptomatic. She is given warnings prior to leaving. She will return with worsening symptoms. Urine culture was sent. She has no dysuria or frequency at this time. She denies any rena vaginal bleeding or hematuria. She will follow up with the primary care physician. She is aware that the culture is pending. Differential Diagnosis: My differential includes but is not limited to ACS, acute VT, pneumonia, bronchitis, electrolyte abnormality, sugar abnormality, anxiety - Data Points Laboratory Results: Laboratory Results 07/12/17 16:20 07/12/17 18:29 07/12/17 07/12/17 07/12/17 18:29 17:10 16:54 WBC RBC Hgb Hct MCV MCH MCHC RDW Plt Count MPV Neut % (Auto) Lymph % (Auto) [place] % (Auto) Eos % (Auto) Baso % (Auto) Nucleat RBC Rel Count Absolute Neuts (auto) Absolute Lymphs (auto) Absolute Monos (auto) Absolute Eos (auto) Absolute Basos (auto) Absolute Nucleated RBC Immature Gran % Immature Gran # PT 14.6 SEC SEC (12.0-15.0) INR 1.12 (0.83-1.16) APTT 27.0 SEC SEC (23.0-38.0) D-Dimer < 0.27 ug/mLFEU ug/mLFEU (0.00-0.50) Sodium 138 mEq/L mEq/L (135-145) Potassium 3.6 mEq/L mEq/L (3.3-5.0) Chloride 103 mEq/L mEq/L (97-110) Carbon Dioxide 25 mEq/l mEq/l (22-31) Anion Gap 10 mEq/L mEq/L (8-16) BUN 10 mg/dL mg/dL (7-23) Creatinine 0.5 mg/dL L mg/dL (0.6-1.0) Estimated GFR > 60 Glucose 90 mg/dL mg/dL (70-100) Calcium 8.8 mg/dL mg/dL (8.5-10.4) Total Bilirubin Conjugated Bilirubin Unconjugated Bilirubin AST ALT Alkaline Phosphatase Troponin I 0.020 ng/mL ng/mL (0.000-0.034) NT-Pro-B Natriuret Pep Total Protein Albumin Lipase Urine Color YELLOW Urine Appearance CLEAR Urine pH 6.0 (5.0-7.5) Ur Specific [place] 1.012 (1.002-1.030) Urine Protein NEGATIVE (NEGATIVE) Urine Ketones 1+ H (NEGATIVE) Urine Blood 3+ H (NEGATIVE) Urine Nitrate NEGATIVE (NEGATIVE) Urine Bilirubin NEGATIVE (NEGATIVE) Urine Urobilinogen NEGATIVE EU EU (0.2-1.0) Ur Leukocyte Esterase NEGATIVE (NEGATIVE) Urine RBC 25-50 /hpf H /hpf (0-3) Urine WBC 5-10 /hpf H /hpf (0-3) Ur Epithelial Cells TRACE /lpf /lpf (NONE-1+) Urine Bacteria 1+ /hpf H /hpf (NONE SEEN) Urine Mucus 1+ /lpf /lpf (NONE-1+) Urine Glucose NEGATIVE (NEGATIVE) 07/12/17 07/12/17 16:20 16:20 WBC 6.23 10^3/uL 10^3/uL (3.80-9.50) RBC 4.71 10^6/uL 10^6/uL (4.18-5.33) Hgb 15.6 g/dL g/dL (12.6-16.3) Hct 42.6 % % (38.0-47.0) MCV 90.4 fL fL (81.5-99.8) MCH 33.1 pg pg (27.9-34.1) MCHC 36.6 g/dL g/dL (32.4-36.7) RDW 12.3 % % (11.5-15.2) Plt Count 202 10^3/uL 10^3/uL (150-400) MPV 10.7 fL fL (8.7-11.7) Neut % (Auto) 51.0 % % (39.3-74.2) Lymph % (Auto) 40.4 % % (15.0-45.0) [place] % (Auto) 7.5 % % (4.5-13.0) Eos % (Auto) 0.2 % L % (0.6-7.6) Baso % (Auto) 0.6 % % (0.3-1.7) Nucleat RBC Rel Count 0.0 % % (0.0-0.2) Absolute Neuts (auto) 3.17 10^3/uL 10^3/uL (1.70-6.50) Absolute Lymphs (auto) 2.52 10^3/uL 10^3/uL (1.00-3.00) Absolute Monos (auto) 0.47 10^3/uL 10^3/uL (0.30-0.80) Absolute Eos (auto) 0.01 10^3/uL L 10^3/uL (0.03-0.40) Absolute Basos (auto) 0.04 10^3/uL 10^3/uL (0.02-0.10) Absolute Nucleated RBC 0.00 10^3/uL 10^3/uL (0-0.01) Immature Gran % 0.3 % % (0.0-1.1) Immature Gran # 0.02 10^3/uL 10^3/uL (0.00-0.10) PT INR APTT D-Dimer Sodium 140 mEq/L mEq/L (135-145) Potassium 3.4 mEq/L mEq/L (3.3-5.0) Chloride 101 mEq/L mEq/L (97-110) Carbon Dioxide 15 mEq/l L mEq/l (22-31) Anion Gap 24 mEq/L H mEq/L (8-16) BUN 11 mg/dL mg/dL (7-23) Creatinine 0.6 mg/dL mg/dL (0.6-1.0) Estimated GFR Not Reported Glucose 122 mg/dL H mg/dL (70-100) Calcium 9.6 mg/dL mg/dL (8.5-10.4) Total Bilirubin 1.1 mg/dL mg/dL (0.1-1.4) Conjugated Bilirubin 0.5 mg/dL mg/dL (0.0-0.5) Unconjugated Bilirubin 0.6 mg/dL mg/dL (0.0-1.1) AST 18 IU/L IU/L (14-46) ALT 66 IU/L H IU/L (9-52) Alkaline Phosphatase 138 IU/L H IU/L (38-126) Troponin I < 0.012 ng/mL ng/mL (0.000-0.034) NT-Pro-B Natriuret Pep 64 pg/mL pg/mL (0-125) Total Protein 8.1 g/dL g/dL (6.3-8.2) Albumin 4.8 g/dL g/dL (3.5-5.0) Lipase 204 IU/L IU/L (23-300) Urine Color Urine Appearance Urine pH Ur Specific [place] Urine Protein Urine Ketones Urine Blood Urine Nitrate Urine Bilirubin Urine Urobilinogen Ur Leukocyte Esterase Urine RBC Urine WBC Ur Epithelial Cells Urine Bacteria Urine Mucus Urine Glucose Medications Given: Discontinued Medications Sodium Chloride (Ns) 500 mls @ 1,000 mls/hr IV EDNOW ONE PRN Reason: Protocol Stop: 07/12/17 17:07 Last Admin: 07/12/17 17:08 Dose: 500 mls Departure - Departure Disposition: Home, Routine, Self-Care Clinical Impression: Anxiety Condition: Good Instructions: Anxiety (ED) Additional Instructions: Return with increasing symptoms, chest pain, shortness of breath or any other concerns. Referrals: Michael Zavala, [Doctor of Osteopathy] - 2-3 days without fail
[2017-07-12 16:44] LABS: PLATELET COUNT 202 10^3/uL (150-400)
[2017-07-12 17:38] LABS: INR 1.12 (0.83-1.16); PROTIME(PATIENT) 14.6 SEC (12.0-15.0)
--- NOTE | 2017-07-12 18:30 | CPEKG ---
Heart Rate: 77 RR Interval: 779 P-R Interval: 192 QRSD Interval: 86 QT Interval: 396 QTC Interval: 449 P [place]: 56 QRS [place]: -17 T Wave [place]: 36 EKG Severity - OTHERWISE NORMAL ECG - EKG Impression: SINUS RHYTHM EKG Impression: BORDERLINE LEFT AXIS DEVIATION Electronically Signed By: Alton Braswell 14-Jul-2017 09:54:34
[2017-07-12 19:26] VITALS: BP 156/84
== END 2017-07-12 19:24 | disposition home or self-care (01) ==
LOC: EDUNIT#
DX: F41.9 Anxiety disorder, unspecified (principal); E86.9 Volume depletion, unspecified; Z87.891 Personal history of nicotine dependence

== ENCOUNTER 2017-08-17 09:03 | Emergency (ER) | payer MEDICAID ==
[2017-08-17] MEDS ORDERED: NS 1,000 ML IV ONE (09:26)
[2017-08-17] MEDS ORDERED: LORazepam 2 MG/ML INJ IVP ONE (09:26)
--- NOTE | 2017-08-17 09:29 | EDPHY ---
H & P Stated Complaint: hyperventilation/carpal spasms post being in heat/anxious Time Seen by Provider: 08/17/17 09:18 HPI/ROS: CHIEF COMPLAINT: "My hands are cramped" HISTORY OF PRESENT ILLNESS: 62-year-old female arrives via ambulance complaining of hyperventilation, feeling jittery, carpal pedal spasms. She describes prior episodes of similar. This morning she was walking a friend's dog, started to feel anxiety injury, went to her car and states that she felt like sounds and lights were exacerbated, fell increase in hyperventilation and carpal pedal spasms. She remains symptomatic when I examine her. She has been to the emergency department previously for similar most recently 1 month ago states this feels like a similar episode. She notes that this will particularly happen when she goes from a cold environment to hot environment. She denies: Chest pain, syncope or near syncope, back pain, abdominal pain, palpitations, nausea, vomiting, diaphoresis. PRIMARY CARE PROVIDER:[facility] REVIEW OF SYSTEMS: A ten point review of systems was performed and is negative with the exception of the items mentioned in the HPI PAST MEDICAL & SURGICAL HISTORY: Hypertension SOCIAL HISTORY:Nonsmoker. No drug use. PHYSICAL EXAM (Prior to examination, patient consented to physical exam, hands were washed and my usual and customary physical exam procedures followed) 1) GENERAL: Well-developed, well-nourished, alert and oriented. Appears anxious 2) HEAD: Normocephalic, atraumatic 3) HEENT: Pupils equal, round, reactive to light bilaterally. Sclera anicteric. 4) NECK: Full range of motion, no meningeal signs. 5) LUNGS: Clear auscultation bilaterally, no wheezes, no rhonchi, no retractions. Hyperventilating. 6) HEART: Regular rate and rhythm, no murmur, no heave, no gallop. 7) ABDOMEN: No guarding, no rebound, no focal tenderness, negative McBurney's, negative Szymanski's, negative Rovsing's, negative peritoneal sign, 8) MUSCULOSKELETAL: Carpal pedal spasms noted. Moving all extremities, no focal areas of tenderness, no obvious trauma. No peripheral edema or discoloration. 9) BACK: No CVA tenderness, no midline vertebral tenderness, no fluctuance, no step-off, no obvious trauma, no visual or palpable abnormality. 10) SKIN: No rash, no petechiae. 11) Psychiatric: Patient is oriented X 3, there is no agitation. 12) NEURO: Awake, alert, and oriented to person, place and time. Answers questions appropriately. There were no obvious focal neurologic abnormalities. No cerebellar dysfunction. Cranial nerves 2 through to 12 intact. Normal steady gait. Upper and lower extremities bilaterally with strength 5 / 5, reflexes 2+. DIFFERENTIAL DIAGNOSIS: In no particular include but limited to pulmonary embolus, pneumothorax, [place], and acute anxiety reaction - Personal History Current Tetanus Diphtheria and Acellular Pertussis (TDAP): Yes - Medical/Surgical History Hx Asthma: No Hx Chronic Respiratory Disease: No Hx Diabetes: No Hx Cardiac Disease: No Hx Renal Disease: No Hx Cirrhosis: No Hx Alcoholism: No Hx HIV/AIDS: No Hx Splenectomy or Spleen Trauma: No Other PMH: htn/chronic back pain from a hospital 1 year ago steernal fx - Social History Smoking Status: Former smoker Constitutional: Initial Vital Signs Temperature (C) 36.5 C 08/17/17 09:07 Heart Rate 88 08/17/17 09:07 Respiratory Rate 22 H 08/17/17 09:07 Blood Pressure 168/106 H 08/17/17 09:07 O2 Sat (%) 100 08/17/17 09:07 O2 Delivery Mode Nasal Cannula O2 (L/minute) 2 Allergies/Adverse Reactions: augmetin Allergy (Uncoded 08/17/17 09:06) unknown ABX Allergy (Uncoded 07/14/16 17:16) Home Medications: Medication Instructions [facility]ed [facility] Medical Decision Making - Diagnostics Imaging Results: Imaging Impressions Chest X-Ray 08/17/17 09:46 Impression: Normal chest x-ray. ED Course/Re-evaluation: 10:30 a.m.: Re-evaluation. Old medical records were reviewed. She has been given IV fluids, Ativan and at this time she is sleeping, easily woken, states that she is feeling improvement. Carpal pedal spasms have resolved. Heart rate and respiratory rate have normalized. Discussed laboratory studies. Doubt [place], doubt PE. She would like to be discharged. At this time she does informed that she has been experiencing numerous life stressors. Denies self- injurious behavior or homicidal or suicidal ideation. Plan will be discharge, recommend follow up with primary care provider. Usual and customary discharge precautions instructions provided. I saw this patient independently based on established practice protocols. Care of patient under supervision of primary Supervising physician Dr Croft . - Data Points Laboratory Results: Laboratory Results 08/17/17 09:30 08/17/17 09:30 08/17/17 08/17/17 08/17/17 09:52 09:30 09:30 WBC RBC Hgb Hct MCV MCH MCHC RDW Plt Count MPV Neut % (Auto) Lymph % (Auto) [place] % (Auto) Eos % (Auto) Baso % (Auto) Nucleat RBC Rel Count Absolute Neuts (auto) Absolute Lymphs (auto) Absolute Monos (auto) Absolute Eos (auto) Absolute Basos (auto) Absolute Nucleated RBC Immature Gran % Immature Gran # D-Dimer < 0.27 ug/mLFEU ug/mLFEU (0.00-0.50) Sodium 142 mEq/L mEq/L (135-145) Potassium 3.9 mEq/L mEq/L (3.3-5.0) Chloride 105 mEq/L mEq/L (97-110) Carbon Dioxide 22 mEq/l mEq/l (22-31) Anion Gap 15 mEq/L mEq/L (8-16) BUN 12 mg/dL mg/dL (7-23) Creatinine 0.6 mg/dL mg/dL (0.6-1.0) Estimated GFR > 60 Glucose 118 mg/dL H mg/dL (70-100) Calcium 9.9 mg/dL mg/dL (8.5-10.4) POC Troponin I 0.00 ng/mL ng/mL (0.00-0.08) 08/17/17 09:30 WBC 4.15 10^3/uL 10^3/uL (3.80-9.50) RBC 4.41 10^6/uL 10^6/uL (4.18-5.33) Hgb 14.4 g/dL g/dL (12.6-16.3) Hct 40.1 % % (38.0-47.0) MCV 90.9 fL fL (81.5-99.8) MCH 32.7 pg pg (27.9-34.1) MCHC 35.9 g/dL g/dL (32.4-36.7) RDW 12.2 % % (11.5-15.2) Plt Count 158 10^3/uL 10^3/uL (150-400) MPV 11.5 fL fL (8.7-11.7) Neut % (Auto) 42.7 % % (39.3-74.2) Lymph % (Auto) 45.5 % H % (15.0-45.0) [place] % (Auto) 8.4 % % (4.5-13.0) Eos % (Auto) 1.4 % % (0.6-7.6) Baso % (Auto) 1.0 % % (0.3-1.7) Nucleat RBC Rel Count 0.0 % % (0.0-0.2) Absolute Neuts (auto) 1.77 10^3/uL 10^3/uL (1.70-6.50) Absolute Lymphs (auto) 1.89 10^3/uL 10^3/uL (1.00-3.00) Absolute Monos (auto) 0.35 10^3/uL 10^3/uL (0.30-0.80) Absolute Eos (auto) 0.06 10^3/uL 10^3/uL (0.03-0.40) Absolute Basos (auto) 0.04 10^3/uL 10^3/uL (0.02-0.10) Absolute Nucleated RBC 0.00 10^3/uL 10^3/uL (0-0.01) Immature Gran % 1.0 % % (0.0-1.1) Immature Gran # 0.04 10^3/uL 10^3/uL (0.00-0.10) D-Dimer Sodium Potassium Chloride Carbon Dioxide Anion Gap BUN Creatinine Estimated GFR Glucose Calcium POC Troponin I Medications Given: Discontinued Medications Sodium Chloride (Ns) 1,000 mls @ 0 mls/hr IV ONCE ONE PRN Reason: Wide Open Stop: 08/17/17 09:27 Last Admin: 08/17/17 09:37 Dose: 1,000 mls Sodium Chloride (Ns) 500 mls @ 1,000 mls/hr IV EDNOW ONE PRN Reason: Protocol Stop: 08/17/17 10:15 Last Admin: 08/17/17 10:35 Dose: Not Given Lorazepam (Ativan Injection) 1 mg IVP EDNOW ONE Stop: 08/17/17 09:27 Last Admin: 08/17/17 09:37 Dose: 1 mg Point of Care Test Results: Chemistry 08/17/17 09:52 POC Troponin I 0.00 ng/mL ng/mL (0.00-0.08) Departure - Departure Disposition: Home, Routine, Self-Care Clinical Impression: Anxiety Condition: Good Instructions: Anxiety (ED) Additional Instructions: Return to the ER if you developed chest pain shortness of breath or any other symptoms that concern you. Referrals: Karrie Brambila PA [Primary Care Provider] - 1-2 days without fail
[2017-08-17] MEDS ORDERED: NS 500 ML IV ONE (09:46)
[2017-08-17 09:55] LABS: PLATELET COUNT 158 10^3/uL (150-400)
--- NOTE | 2017-08-17 10:06 | CPEKG ---
Heart Rate: 64 RR Interval: 938 P-R Interval: 196 QRSD Interval: 86 QT Interval: 396 QTC Interval: 409 P [place]: 35 QRS [place]: -27 T Wave [place]: 31 EKG Severity - OTHERWISE NORMAL ECG - EKG Impression: SINUS RHYTHM EKG Impression: BORDERLINE LEFT AXIS DEVIATION Electronically Signed By: Kali Bryson 19-Aug-2017 12:13:32
[2017-08-17 10:47] VITALS: BP 162/94
== END 2017-08-17 10:48 | disposition home or self-care (01) ==
DX: F41.9 Anxiety disorder, unspecified (principal); I10 Essential (primary) hypertension; E86.9 Volume depletion, unspecified; Z87.891 Personal history of nicotine dependence
CPT/HCPCS: 84484-PO; 96374; J2060